=== PATIENT | male | born 1965 | race Caucasian/White ===

== ENCOUNTER → 2021-02-11 13:34 | Outpatient (CLI) | payer OTHER, SELFPAY ==
--- NOTE | ~2021-02-11 | MR_ITS ---
EXAMINATION: MR brain/brain stem wo/w con EXAM DATE: 02/11/2021 14:56 INDICATION: Left leg weakness, right sided visual changes without evidence of expansion or volume los s.. TECHNIQUE: Magnetic resonance imaging (MRI) of the brain/brain stem obtained without contrast. Sagit dominick T1, axial diffusion, gradient echo (T2*), T1, T2, FLAIR sequences obtained. Patient was then inj ected with 20 cc intravenous Multihance contrast. Axial and coronal postcontrast T1 weighted sequence s obtained. There is no prior study for comparison. FINDINGS: There is region of increased T2 signal intensity within the right cerebral peduncle measuri ng about 6 x 15 mm. This is of uncertain clinical significance. Could be subacute infarction, but the re is no enhancement as often seen with subacute infarctions. There is also no expansion as could be seen with glioma. This is of uncertain clinical significance, could be some nonspecific myelomalacia and may well be unrelated to patient's symptoms, but consider 6 month follow-up brain MR. There are no areas of restricted diffusion to suggest acute infarction. There is no acute hemorrhage seen on the T2*, a hemosiderin sensitive sequence. No intraparenchymal brain mass. The ventricles a re normal in size. There are no extra-axial collections. Flow voids are seen in the cerebral arteri es on the T2-weighted sequences consistent with their expected patency. The orbits are unremarkable. Soft tissue is unremarkable. There are no areas of abnormal enhancement on the post contrast image s. IMPRESSION: 1. Small nonspecific signal abnormality right cerebral peduncle, most likely not a clinically signif icant finding but recommend 6 month follow-up brain MRI. 2. Otherwise unremarkable exam. Reviewed, dictated and finalized at location A. IMPRESSION: 1. Small nonspecific signal abnormality right cerebral peduncle, most likely n ot a clinically significant finding but recommend 6 month follow-up brain MRI. 2. Otherwise unremarkable exam.
[2021-02-11 14:35] LABS: Estimated Glomerular Filt Rate > 60
== END ==
PROVIDERS: PCP Family Medicine Adolescent Medicine; Visit Provider Physician Assistant
DX: R53.1 Weakness (principal); H53.9 Unspecified visual disturbance; R94.02 Abnormal brain scan
CPT/HCPCS: 70553; A9577

== ENCOUNTER 2021-06-10 01:33 | Day surgery (SDC) | payer OTHER, SELFPAY ==
[2021-06-09 16:34] VITALS: BMI 36.9
[2021-06-10] VITALS (9 sets, daily range): BP systolic 109–142; BP diastolic 75–97; PULSE 52–72; RESP 16–22; TEMP 36.1–36.3; O2SAT 95–98; BMI 37.2
[2021-06-10 09:35] LABS: Basophils Absolute Auto 0.1 K/mm3 (0.0-0.1); Basophils Percent Auto 0.9 % (0.2-1.2); Eosinophils Absolute Auto 0.2 K/mm3 (0-0.3); Eosinophils Percent Auto 2.2 % (0-4.4); Hematocrit 40.6 % (42.0-52.0); Hemoglobin 14.5 g/dL (14.0-18.0); Immature Granulocyte Absolute 0.02 K/mm3 (0.00-0.031); Immature Granulocyte Percent A 0.3 % (0-0.5); Lymphocytes Percent Auto 34.6 % (18.3-44.2); Mean Corpuscular HGB Conc 35.7 g/dl (32-36); Mean Corpuscular Hemoglobin 31.1 pg (26-34); Mean Corpuscular Volume 87.1 fl (80-100); Mean Platelet Volume 9.2 fl (7.4-10.4); Monocytes Absolute Auto 0.6 K/mm3 (0.1-0.6); Monocytes Percent Auto 9.2 % (2.6-8.5); Neutrophils Absolute Auto 3.7 K/mm3 (1.3-6.7); Neutrophils Percent Auto 52.8 % (45.5-73.1); Platelet Count Result 211 k/mm3 (150-375); Red Blood Count 4.66 M/mm3 (4.6-6.20); Red Cell Distribution Width 13.2 % (11.5-14.5); White Blood Count 6.9 K/mm3 (4.5-10.0)
[2021-06-10 09:43] LABS: Anion Gap 10 mmol/L (8-16); Blood Urea Nitrogen 12 mg/dL (9-20); Calcium 9.1 mg/dL (8.4-10.2); Carbon Dioxide 21 mmol/L (22-30); Chloride 109 mmol/L (98-107); Estimated CRCL calculation 131 ml/min; Estimated Glomerular Filt Rate > 60; Glucose 134 mg/dL (65-110); Potassium 4.6 mmol/L (3.4-5.0); Sodium 140 mmol/L (137-145)
--- NOTE | 2021-06-10 10:38 | PM.IMHP ---
H&P: HPI History of Present Illness Date/Time: 06/10/21 10:38 Chief Complaint: Elective admission for left heart catheterization Narrative: this is a 56-year-old man who is known to have multivessel coronary artery disease admitted today as an outpatient for an elective angiogram to assess the status of his coronary artery disease. He is known to me from an evaluation that occurred in September of 2011 at that time he was admitted to this hospital with exertional chest pain compatible with angina. He was found to have multivessel coronary artery disease and referred to [facility] where he underwent surgical myocardial revascularization in September of 2011. His operation consisted of an RADHA graft to the LAD, a radial artery graft to the 1st OM and a saphenous vein graft to the RPDA. He says that he did very well following surgical revascularization he apparently followed for a short period time in the office but since he was asymptomatic did not come back for ongoing cardiac follow up in our office in quite a number of years. He does follow with Dr. Cyril Mosley who provides his primary care needs. He has been managing his hypertension and he says he has generally been doing very well. He noticed that about 2 months ago his exercise routine was being affected by exertional shortness of breath and some chest pain. This has not been the case until a couple of months ago he has had to curtail his activity was used to walking about 4-5 miles several times per day for exercise. He has had to shorten the walks and stop and rest to avoid the symptoms. Because of these symptoms a stress echocardiogram was performed in our office at the request of the PCP. That was done couple of weeks ago and demonstrated obvious evidence of exercise-induced ischemia with ischemic ST segment depression and left ventricular enlargement and generalized hypocontractility that was noticed in comparison to the resting images. As result of this a follow-up angiogram has been recommended for today. Review of Systems Constitutional: Constitutional: Reports no additional constitutional complaints Eyes: Eyes: Reports no additional eye complaints ENT: Reports system reviewed and no additional complaints, except as documented Cardiovascular: Cardiovascular: Reports as per HPI Respiratory: Respiratory: Reports as per HPI Gastrointestinal: Gastrointestinal: Reports no additional gastrointestinal complaints Musculoskeletal: Musculoskeletal: Reports arthralgias Integumentary/Breasts: Skin/Breast: Reports system reviewed and no additional complaints, except as docu Neurologic: Reports system reviewed and no additional complaints, except as documented [facility] Past Medical History Medical History (Updated 03/12/21 @ 16:14 by Eusebio Lord MD) Diabetes Surgical History Surgical History S/P triple vessel bypass Family History Family History Other Breast cancer Diabetes mellitus Heart disease Hypertension Primary lung cancer Social History Social History (Updated 12/02/19 @ 10:55 by Ashley Ruby CNP) Smoking status: Never smoker Smokeless tobacco user: chewing tobacco Second hand tobacco smoke exposure: No Alcohol intake: never Substance use: never Living arrangements: with family Gender identity (if verbalized by the patient): Male Spiritual care concerns: No Meds Home Medications and Allergies Home Medications Medication Instructions Recorded Confirmed Type allopurinol 300 mg PO DAILY 12/02/19 06/09/21 History amlodipine 10 mg PO DAILY 12/02/19 06/09/21 History lisinopril 20 mg PO DAILY 12/02/19 06/09/21 History sildenafil (pulm.hypertension) 20 mg PO PRN PRN 12/02/19 06/09/21 History atorvastatin 20 mg PO DAILY 06/10/21 06/10/21 History Allergies Allergy/AdvReac Type Severity Reacti
--- NOTE | 2021-06-10 10:43 | WPDMODSED ---
Moderate Sedation Note-Pt Data Patient Data Diagnosis: coronary artery disease with previous bypass grafting abnormal stress echo Present Complaint: exertional chest pain Procedure to be performed/Plan: coronary angiography mammary graft angiography radial artery graft angiography saphenous vein graft angiography Allergies Allergy/AdvReac Type Severity Reaction Status Date / Time No Known Allergies Allergy Verified 06/10/21 09:40 Home Medications Medication Instructions Recorded Confirmed Type allopurinol 300 mg PO DAILY 12/02/19 06/09/21 History amlodipine 10 mg PO DAILY 12/02/19 06/09/21 History lisinopril 20 mg PO DAILY 12/02/19 06/09/21 History sildenafil (pulm.hypertension) 20 mg PO PRN PRN 12/02/19 06/09/21 History atorvastatin 20 mg PO DAILY 06/10/21 06/10/21 History Current Medications: Active Medications Sodium Chloride (Normal Saline Iv) 500 mls @ 100 mls/hr IV CONT .Q5H FRANSISCA Sedation/Anesthesia: No previous sedation/anesthesia problems (including family history). [facility] Past Medical History Medical History (Updated 03/12/21 @ 16:14 by Eusebio oLrd MD) Diabetes Surgical History Surgical History S/P triple vessel bypass Family History Family History Other Breast cancer Diabetes mellitus Heart disease Hypertension Primary lung cancer Social History Social History (Updated 12/02/19 @ 10:55 by Ashley Ruby CNP) Smoking status: Never smoker Smokeless tobacco user: chewing tobacco Second hand tobacco smoke exposure: No Alcohol intake: never Substance use: never Living arrangements: with family Gender identity (if verbalized by the patient): Male Spiritual care concerns: No Mod Sed Physical Exam Physical Exam Pre Procedural Exam: Normal: Nose ( no ability to assess JVD because of his body habitus), Neck, Throat, Airway, Lungs, Heart Rate, Heart Rhythm, Neuro Exam and Extremities and Variation: Appearance ( pleasant obese man in no apparent distress) and Heart Size ( PMI not palpable) Hours since solid foods: 12 Hours since liquid intake: 12 Mallampati Classification: class III Internal Medicine - PN: Obj Da Vital Signs Vital Signs: Vital Signs - 24 hr 06/10/21 09:40 Temperature 36.3 C L Pulse Rate 66 Respiratory Rate 16 Blood Pressure 141/85 H Pulse Oximetry 95 Meds/Results Medications: Active Medications Generic Name Dose Route Start Last Admin Trade Name Jasmine PRN Reason Stop Dose Admin Sodium Chloride 500 mls @ 100 mls/hr 06/10/21 08:30 Normal Saline Iv IV CONT .Q5H FRANSISCA Labs CBC & Chem 7: 06/10/21 09:11 06/10/21 09:11 Labs: Laboratory Results - last 24 hr 06/10/21 06/10/21 09:11 09:11 WBC 6.9 RBC 4.66 Hgb 14.5 Hct 40.6 L MCV 87.1 MCH 31.1 MCHC 35.7 RDW 13.2 Plt Count 211 MPV 9.2 Immature Gran % (Auto) 0.3 Neut % (Auto) 52.8 Lymph % (Auto) 34.6 Hardy % (Auto) 9.2 H Eos % (Auto) 2.2 Baso % (Auto) 0.9 Lymph # (Auto) 2.40 Hardy # (Auto) 0.6 Eos # (Auto) 0.2 Baso # (Auto) 0.1 Abs Immat Gran (auto) 0.02 Absolute Neuts (auto) 3.7 Absolute Nucleated RBC 0.0 Nucleated RBC % 0.0 Sodium 140 Potassium 4.6 Chloride 109 H Carbon Dioxide 21 L Anion Gap 10 BUN 12 Creatinine 0.80 Estim Creat Clear Calc 131 Estimated GFR > 60 Glucose 134 H Calcium 9.1 ASA Classification/Sedation ASA Classification/Sedation ASA Class: III Emergent: No Risks: Risks, benefits and alternatives explained and patient/family accepted plan for sedation. Patient re-evaluated immediately prior to sedation.
--- NOTE | 2021-06-10 11:52 | WPDCARDPROC ---
Cardiac Cath Procedure Note Date of procedure:: 06/10/21 Performing physician:: Samy Lambert MD Indication:: Exertional angina, abnormal stress echocardiogram history of coronary disease with previous surgical revascularization Brief clinical history:: this is a 56-year-old man who unfortunately is known to have premature coronary disease a underwent multivessel bypass grafting 10 years ago and after being stable is now experiencing exertional ischemic symptomatology. A stress echo was significantly abnormal prompting recommendation to repeat follow-up angiography of his coronary artery disease. Procedure Procedure performed:: Left ventriculography coronary angiography vein graft angiography internal mammary graft angiography radial artery graft angiography Angio-Seal to right femoral artery Sedation/Medication given:: fentanyl 50 mg Versed 2 mg case start time 11:02 a.m. case end time 11:43 a.m. sedation provided by Leora Orourke RN, trained observer Access site:: right femoral artery Estimated blood loss:: 15-20 cc Procedure note:: patient was brought to the cardiac catheterization lab in the postabsorptive state. The right femoral triangle was prepared and draped in the usual fashion. Anesthesia was provided with 1% lidocaine infiltrated locally. Using the modified Seldinger technique the femoral artery was punctured and a 5 [place] vascular sheath was placed. I then used a 5 [place] angled pigtail catheter to document left-sided hemodynamics, pullback pressures across the aortic valve and inject left ventriculography in the PARDO projection. Following this the standard 5 [place] FL4 catheter was used to engage and inject the [place] left coronary artery. A 5 [place] JR4 catheter was then used to engage and inject the [place] right coronary artery as well as the saphenous vein graft to the RCA. A 5 [place] RADHA catheter was used to inject the mammary artery graft to the LAD and lastly a 5 [place] AL1 catheter was used to engage and inject the radial artery graft to the OM circumflex. Following this the cineangiograms were reviewed and the case was terminated. An angiogram was done of the femoral artery through the sheath and an Angio-Seal device was deployed with a good hemostatic result. He was taken to the holding area stable condition with no evidence of any procedural complication and no evidence of a groin hematoma. Findings:: Hemodynamics: Central aortic pressure is 1 18 over 64 left ventricle 118/0 end-diastolic pressure is 8 there is no systolic gradient on pullback across the aortic valve. Left ventricle: The LV is mildly enlarged there appears to be global systolic hypocontractility in all segments with an ejection fraction I would visually estimate to be about 40%. The left main coronary artery is moderate caliber in nicely patent the left anterior descending is a medium caliber artery that has a long area of ostial 99% stenosis the proximal segment of the artery provides flow to 2 septal perforating branches after these branches the [place] LAD itself is 100% occluded. The circumflex is a moderate caliber artery with proximal stenosis of about 70% there are 2 very small diffusely diseased proximal OM branches that are severely diffusely disease. Angiographically these appear to be unchanged from 10 years ago. The circumflex after these OM branches is 100% occluded where previously there was a high-grade stenosis. The right coronary artery is large in caliber and dominant to the posterior wall. The entire right coronary artery is severely diseased with diffuse atherosclerosis. There is a high-grade stenosis of 95% in the 2nd portion of the right coronary there was then a high-grade 95-99% stenosis in the distal bifurcation point of the RCA. The RPDA appears to be occluded the [place] are Ca fills the RPL branches. Saphenous vein graft to the right coronary artery is a large caliber segment of saphenous
--- NOTE | 2021-06-10 16:08 | SUR.PHASEII ---
IV d/c'd by Alyx Smith RN. Catheter intact. No redness or swelling at the site. Drsg to right femoral artery remained clean, dry and intact. Pt and instructed on follow up appointment, medications, cardiac cath site care, limitations and restrictions with stated understanding. Discharge to home via wheelchair to personal vehicle with driving.
== END 2021-06-10 15:45 | disposition home or self-care (01) ==
PROVIDERS: PCP Family Medicine Adolescent Medicine; Visit Provider Specialist
PROC: 4A023N7 Measurement of Cardiac Sampling and Pressure, Left Heart, Percutaneous Approach (ICD-10-PCS; CPT 93459; principal; 2021-06-10 10:00)
DX: I25.10 Atherosclerotic heart disease of native coronary artery without angina pectoris (principal); R93.1 Abnormal findings on diagnostic imaging of heart and coronary circulation; R07.9 Chest pain, unspecified; Z95.1 Presence of aortocoronary bypass graft
CPT/HCPCS: 36415; 80048; 85025; 93459; C1760; C1887; C1894; G0269; J1644; J2250; J3010; J7040

== ENCOUNTER 2021-07-20 15:24 | Emergency (ER) | payer OTHER, SELFPAY ==
--- NOTE | ~2021-07-20 | CT_ITS ---
EXAMINATION: CT abdomen pelvis w con DATE: 07/20/2021 19:19 INDICATION: Right lower quadrant abdominal pain. TECHNIQUE: Computed tomography (CT) of the abdomen and pelvis was performed with 100 mL Omnipaque 350 intravenous contrast. Automated exposure control and iterative reconstruction technique were employe d. The dose-length product was 1773.20 mGy-cm. COMPARISON: None. FINDINGS: The visualized portions of the lung bases demonstrate mild atelectasis. Calcified right sven g nodules are consistent with old granulomatous disease. No pleural effusion. The heart size is yajaira l. There are coronary artery calcifications. No pericardial effusion. There is diffuse hepatic steato sis. Calcifications in the liver and spleen are consistent with old granulomatous disease. The gallbl adder is normal in size and contains gallstones. The pancreas and adrenal glands are normal. There ar e cysts in the kidneys measuring up to 12 mm on the right. There is a 2 mm stone in right kidney. The re is a 6 mm stone in left kidney. The prostate is mildly enlarged. There is diverticulosis of the co braxton without evidence of diverticulitis. The appendix is normal. The terminal ileum is normal. There a re no dilated loops of bowel. There are no pathologically enlarged lymph nodes. There is no free intr aperitoneal fluid. There is moderate lumbar and thoracic spondylosis IMPRESSION: 1. Cholelithiasis. No evidence of acute cholecystitis. 2. Bilateral nonobstructing kidney stones. 3. Diffuse hepatic steatosis. Reviewed, dictated and finalized at location A.
[2021-07-20 15:27] VITALS: BP 143/97; PULSE 84; RESP 20; TEMP 36.4; O2SAT 99
[2021-07-20 16:57] VITALS: BP 142/94; PULSE 72; RESP 16; O2SAT 98
--- NOTE | 2021-07-20 17:36 | ED.ABDPAIN ---
HPI - Abdominal Pain General Chief Complaint: Extremity Injury, Lower Stated Complaint: right groin pain Time Seen by Provider: 07/20/21 17:08 Source: patient Mode of arrival: ambulatory Limitations: no limitations History of Present Illness HPI narrative: Patient is a 56-year-old male complaining of right lower quadrant pain, 6 out of 10, dull, pressure, radiating to the right groin, worse with palpation and movement, that started 2 weeks ago but worse the past 2 days. Patient states that he lifted his granddaughter while in the pool and that is where the pain started 2 weeks ago. Patient denies any chest pain, shortness of breath, nausea, vomiting, fever, chills or urinary symptoms. Related Data Home Medications Medication Instructions Recorded Confirmed allopurinol 300 mg PO DAILY 12/02/19 06/09/21 amlodipine 10 mg PO DAILY 12/02/19 06/09/21 lisinopril 20 mg PO DAILY 12/02/19 06/09/21 atorvastatin 20 mg PO DAILY 06/10/21 06/10/21 Allergies Allergy/AdvReac Type Severity Reaction Status Date / Time No Known Allergies Allergy Verified 07/20/21 17:03 Review of Systems Review of Systems: All systems reviewed & are unremarkable except as noted in HPI and below Constitutional: Constitutional: Denies body ache(s), Denies chills, Denies excessive sweating, Denies fatigue, Denies fever(s), Denies headache(s), Denies lethargy, Denies malaise, Denies weakness and Denies weight loss Eyes: Eyes: Denies blurry vision, Denies change in vision and Denies loss of vision ENT: Denies dizziness, Denies ear discharge, Denies headache(s), Denies lip swelling, Denies epistaxis, Denies nasal congestion, Denies neck pain, Denies throat swelling and Denies tongue swelling Cardiovascular: Cardiovascular: Denies chest pain, Denies chest pain at rest, Denies chest pain with activity, Denies diaphoresis, Denies rapid heart rate, Denies edema, Denies irregular heart rhythm, Denies lightheadedness, Denies palpitations, Denies dyspnea and Denies dyspnea on exertion Respiratory: Respiratory: Denies chest congestion, Denies cough, Denies hemoptysis, Denies dyspnea and Denies dyspnea on exertion Gastrointestinal: Gastrointestinal: Denies abdominal pain, Denies melena, Denies hematochezia, Denies diarrhea, Denies nausea, Denies vomiting and Denies hematemesis Musculoskeletal: Musculoskeletal: Denies abnormal gait, Denies deformity, Denies joint swelling, Denies limited range of motion, Denies neck pain and Denies numbness Neurologic: Denies Abnormal speech present, Denies abnormal gait, Denies confusion, Denies dizziness, Denies headache(s), Denies focal weakness, Denies loss of vision, Denies numbness, Denies Other visual disturbances, Denies Sensory deficit (Neuro) and Denies weakness Psychiatric: Psychiatric: Denies confusion, Denies depression, Denies auditory hallucinations, Denies homicidal ideation and Denies suicidal ideation Endocrine: Endocrine: Denies cold intolerance, Denies excessive sweating, Denies fatigue, Denies heat intolerance and Denies palpitations Hematologic/Lymphatic: Hematologic/Lymphatic: Denies easy bleeding and Denies easy bruising Allergic/Immunologic: Allergic/Immunologic: Denies lip swelling, Denies throat swelling and Denies tongue swelling PMFSH Past Medical History Medical History Diabetes Surgical History Surgical History S/P triple vessel bypass Family History Family History Other Breast cancer Diabetes mellitus Heart disease Hypertension Primary lung cancer Social History Social History Smoking status: Never smoker Smokeless tobacco user: chewing tobacco Second hand tobacco smoke exposure: No Alcohol intake: never Substance use: never Gender identity (if verbalized by the p
[2021-07-20] MEDS: LACTATED RINGERS 1,000 ML 999 ML IV CONT (18:29)
[2021-07-20 18:43] LABS: Basophils Absolute Auto 0.1 K/mm3 (0.0-0.1); Basophils Percent Auto 0.9 % (0.2-1.2); Eosinophils Absolute Auto 0.2 K/mm3 (0-0.3); Eosinophils Percent Auto 2.4 % (0-4.4); Hematocrit 42.7 % (42.0-52.0); Hemoglobin 14.9 g/dL (14.0-18.0); Immature Granulocyte Absolute 0.05 K/mm3 (0.00-0.031); Immature Granulocyte Percent A 0.5 % (0-0.5); Lymphocytes Absolute Auto 3.57 K/mm3 (0.9-3.2); Lymphocytes Percent Auto 37.5 % (18.3-44.2); Mean Corpuscular HGB Conc 34.9 g/dl (32-36); Mean Corpuscular Volume 91.8 fl (80-100); Mean Platelet Volume 8.9 fl (7.4-10.4); Monocytes Absolute Auto 0.7 K/mm3 (0.1-0.6); Monocytes Percent Auto 7.6 % (2.6-8.5); Neutrophils Absolute Auto 4.9 K/mm3 (1.3-6.7); Neutrophils Percent Auto 51.1 % (45.5-73.1); Platelet Count Result 215 k/mm3 (150-375); Red Blood Count 4.65 M/mm3 (4.6-6.20); Red Cell Distribution Width 13.6 % (11.5-14.5); White Blood Count 9.5 K/mm3 (4.5-10.0)
[2021-07-20 18:45] LABS: Add Urine Microscopic? NO; Appearance Urine Clear (Clear); Bilirubin Urine Negative (Negative); Blood Urine Negative (Negative); Color Urine Yellow (Yellow); Glucose Urine UA Negative (Negative); Ketones Urine Negative (Negative); Leukocyte Esterase Ur Negative LEU/UL (Negative); Nitrate Urine Negative (Negative); Protein Urine Negative (Negative); Specific Grav Ur 1.012 (1.001-1.035); Urobilinogen Urine Negative mg/dL (<2.0)
[2021-07-20 18:53] LABS: Alanine Aminotransferase 51 U/L (4-50); Albumin Level 4.6 g/dL (3.5-5.1); Alkaline Phosphatase 57 U/L (38-126); Anion Gap 12 mmol/L (8-16); Aspartate Amino Transferase 39 U/L (17-59); Bilirubin,Total 1.2 mg/dL (0.2-1.3); Blood Urea Nitrogen 15 mg/dL (9-20); Carbon Dioxide 24 mmol/L (22-30); Chloride 102 mmol/L (98-107); Estimated CRCL calculation 117 ml/min; Estimated Glomerular Filt Rate > 60; Glucose 102 mg/dL (65-110); Lipase 317 U/L (23-300); Potassium 3.9 mmol/L (3.4-5.0); Sodium 138 mmol/L (137-145)
--- NOTE | 2021-07-20 19:09 | PC.NURSE ---
Pt off floor to CT scan
[2021-07-20 21:49] VITALS: BP 131/83; PULSE 72; RESP 18; TEMP 36.9; O2SAT 98
== END 2021-07-20 21:51 | disposition home or self-care (01) ==
PROVIDERS: Emergency Provider Emergency Medicine; PCP Family Medicine Adolescent Medicine
DX: R10.31 Right lower quadrant pain (principal); E11.9 Type 2 diabetes mellitus without complications; F17.220 Nicotine dependence, chewing tobacco, uncomplicated; K80.20 Calculus of gallbladder without cholecystitis without obstruction; N20.0 Calculus of kidney; K76.0 Fatty (change of) liver, not elsewhere classified; Z95.1 Presence of aortocoronary bypass graft; I25.10 Atherosclerotic heart disease of native coronary artery without angina pectoris; Z79.82 Long term (current) use of aspirin
CPT/HCPCS: 36415; 74177; 80053; 81003; 83690; 85025; 96360; 99284; J7120; Q9967